=== PATIENT | female | born 1935 | race Caucasian/White ===

== ENCOUNTER 2017-05-02 14:50 | Inpatient (IN) | payer MEDICARE, OTHER ==
[~2017-05-02] VITALS: Ht 162.6 cm; Wt 53.6 kg
[~2017-05-02 14:50] MED LIST: BRIM0.1S3; TRAV0.007
[2017-05-02] MEDS ORDERED: SODIUM CHLORIDE 0.9% 1,000 ML IVB ONE (16:00)
[2017-05-02 16:44] LABS: Lymphocytes # (auto) 1.6 uL; Mean Corpuscular Volume 103.8 fL (80.0-100.0); Neutrophils # (auto) 7.5 uL; Nucleated Red Blood Cells % 0.2 %
[2017-05-02 16:47] LABS: Basophils # (auto) 0 uL; Basophils % (auto) 0.4 % (0.0-2.0); Eosinophils # (auto) 0 uL; Eosinophils % (auto) 0.4 % (0.0-7.0); Hematocrit 43.8 % (36.0-46.0); Hemoglobin 15.1 g/dL (12.2-16.2); Lymphocytes % (auto) 15.2 % (10.0-50.0); Mean Corpuscular Hemoglobin 35.7 pg (28.0-32.0); Mean Corpuscular Hgb Conc. 34.4 g/dL (32.0-36.0); Monocytes # (auto) 1.1 uL; Monocytes % (auto) 11.1 % (0.0-12.0); Neutrophils % (auto) 72.9 % (37.0-80.0); Red Blood Cells 4.22 10^6/uL (4.0-5.20); Red Cell Distribution Width 12.6 % (11.8-14.3); White Blood Cell 10.3 10^3/uL (4.4-10.8)
[2017-05-02 16:50] LABS: Platelet Count (auto) 111 10^3/uL (140-450)
[2017-05-02 16:54] LABS: INR 1.03 (0.9-1.15); Prothrombin Time 11.2 sec (9.37-12.3)
[2017-05-02 17:08] LABS: Alanine Aminotransferase 30 U/L (13-56); Albumin 3.5 g/dL (3.4-5.0); Alkaline Phosphatase 111 U/L (45-117); Anion Gap 7 (5-15); Aspartate Aminotransferase 38 U/L (15-37); BUN/Creatinine Ratio 21.3; Bilirubin, Total 1.1 mg/dL (0.2-1.0); Blood Urea Nitrogen 17 mg/dL (7-18); Calcium 8.5 mg/dL (8.5-10.1); Carbon Dioxide 27 mmol/L (21-32); Chloride 107 mmol/L (98-107); GFR African American 89 mL/min; GFR Non-African American 74 mL/min; Glucose 106 mg/dL (74-106); Magnesium 2.5 mg/dL (1.6-2.6); Potassium 3.8 mmol/L (3.5-5.1); Sodium 141 mmol/L (136-145); Total Protein 6.8 g/dL (6.4-8.2)
[2017-05-02 19:17] LABS: Urine Bacteria NONE SEEN /hpf (None Seen); Urine Blood Negative /uL (Negative); Urine WBC 4 /hpf (0 - 5)
[2017-05-02] MEDS ORDERED: ONDANSETRON HCL 4 MG/2 ML VIAL IV PRN (20:45)
[2017-05-02] MEDS ORDERED: ACETAMINOPHEN 325 MG TAB PO PRN (20:45)
[2017-05-02] MEDS ORDERED: MORPHINE SULFATE 4 MG/ML SYR/VIAL IV PRN (20:45)
[2017-05-02] MEDS ORDERED: DOCUSATE SOD 100 MG CAP PO PRN (20:45)
[2017-05-02] MEDS ORDERED: HYDROcodone-ACET 5/325MG TAB PO PRN (20:45)
[2017-05-02] MEDS ORDERED: NICOTINE 21MG/24 HR TOPICAL PATCH TD ONE (21:45)
[2017-05-02] MEDS: SODIUM CHLORIDE 0.9% 1,000 ML IV SCH (21:50)
[2017-05-02] MEDS: FAMOTIDINE 20 MG TAB PO SCH (22:00)
[2017-05-02 23:27] VITALS: BP 134/73
[2017-05-03 05:00] VITALS: BP 103/55
[2017-05-03 08:56] VITALS: BP 111/56
[2017-05-03] MEDS: FAMOTIDINE 20 MG TAB PO SCH ×2 (10:00→21:59)
[2017-05-03] MEDS: ENOXAPARIN SOD 40 MG/0.4 ML SYRINGE SC SCH (10:00)
[2017-05-03 13:00] VITALS: BP 103/37
[2017-05-03] MEDS: SODIUM CHLORIDE 0.9% 1,000 ML IV SCH (13:21)
[2017-05-03 17:33] VITALS: BP 110/53
[2017-05-03 22:00] VITALS: BP 132/70
[2017-05-04 05:14] VITALS: BP 100/54
[2017-05-04] MEDS: SODIUM CHLORIDE 0.9% 1,000 ML IV SCH (06:51)
[2017-05-04 08:40] VITALS: BP 109/58
[2017-05-04] MEDS: ENOXAPARIN SOD 40 MG/0.4 ML SYRINGE SC SCH (10:00)
[2017-05-04] MEDS: FAMOTIDINE 20 MG TAB PO SCH (10:00)
== END 2017-05-04 13:48 | disposition home or self-care (01) | DRG 605 ==
LOC: ER 14:50 → MERGE 14:51 → OVERFLOW 14:51 → WEST WING 21:44
PROVIDERS: ADMIT Nurse Practitioner; ATTEND Family Medicine
DX: S70.01XA Contusion of right hip, initial encounter (principal); D69.6 Thrombocytopenia, unspecified; W18.39XA Other fall on same level, initial encounter; K80.20 Calculus of gallbladder without cholecystitis without obstruction; M16.0 Bilateral primary osteoarthritis of hip; R62.7 Adult failure to thrive; F17.210 Nicotine dependence, cigarettes, uncomplicated; H40.9 Unspecified glaucoma; M51.36 Other intervertebral disc degeneration, lumbar region; Z86.73 Personal history of transient ischemic attack (TIA), and cerebral infarction without residual deficits; Y93.89 Activity, other specified; Z88.1 Allergy status to other antibiotic agents; Y92.091 Bathroom in other non-institutional residence as the place of occurrence of the external cause; Y99.8 Other external cause status
CPT/HCPCS: 36415; 70450; 71045; 72192; 80053; 81001; 83735; 84484; 85025; 85610; 85730; 93005; 94761; 96360; 96361; 97116; 97163; 97530

== ENCOUNTER 2017-05-07 06:44 | Inpatient (IN) | payer MEDICARE, BC ==
[~2017-05-07] VITALS: Ht 167.6 cm; Wt 57.7 kg
[2017-05-07 07:38] LABS: Basophils # (auto) 0.1 uL; Eosinophils # (auto) 0.1 uL; Lymphocytes # (auto) 1.3 uL; Monocytes # (auto) 1.3 uL; Nucleated Red Blood Cells % 0.1 %
[2017-05-07 07:40] LABS: Basophils % (auto) 0.8 % (0.0-2.0); Eosinophils % (auto) 0.5 % (0.0-7.0); Hematocrit 40.2 % (36.0-46.0); Hemoglobin 13.9 g/dL (12.2-16.2); Lymphocytes % (auto) 11.4 % (10.0-50.0); Mean Corpuscular Hemoglobin 36.1 pg (28.0-32.0); Mean Corpuscular Hgb Conc. 34.6 g/dL (32.0-36.0); Mean Corpuscular Volume 104.4 fL (80.0-100.0); Monocytes % (auto) 11.2 % (0.0-12.0); Neutrophils # (auto) 8.9 uL; Neutrophils % (auto) 76.1 % (37.0-80.0); Platelet Count (auto) 137 10^3/uL (140-450); Red Blood Cells 3.85 10^6/uL (4.0-5.20); Red Cell Distribution Width 12.6 % (11.8-14.3); White Blood Cell 11.7 10^3/uL (4.4-10.8)
[2017-05-07 07:54] LABS: Alanine Aminotransferase 51 U/L (13-56); Albumin 3.1 g/dL (3.4-5.0); Alkaline Phosphatase 138 U/L (45-117); Anion Gap 8 (5-15); Aspartate Aminotransferase 33 U/L (15-37); Bilirubin, Total 0.9 mg/dL (0.2-1.0); Blood Urea Nitrogen 15 mg/dL (7-18); Calcium 8.5 mg/dL (8.5-10.1); Carbon Dioxide 27 mmol/L (21-32); Chloride 112 mmol/L (98-107); GFR African American 153 mL/min; GFR Non-African American 126 mL/min; Glucose 106 mg/dL (74-106); Potassium 3.8 mmol/L (3.5-5.1); Sodium 147 mmol/L (136-145); Total Protein 6.9 g/dL (6.4-8.2)
[2017-05-07 08:48] LABS: INR 0.95 (0.9-1.15); Partial Thromboplastin Time 29.4 sec (22.64-33.71); Prothrombin Time 10.4 sec (9.37-12.3)
[2017-05-07] MEDS ORDERED: MORPHINE SULFATE 4 MG/ML SYR/VIAL IV PRN ×3 (09:00)
[2017-05-07] MEDS ORDERED: PROMETHAZINE HCL 25 MG/ML 1ML IV PRN (09:00)
[2017-05-07] MEDS ORDERED: OSELTAMIVIR 75 MG CAP PO ONE (09:00)
[2017-05-07] MEDS ORDERED: LACTULOSE 20Gm/30ML SOLN PO PRN (09:00)
[2017-05-07] MEDS ORDERED: ALBUTEROL SULF 2.5 MG/0.5ML(0.5%) NEB SOLN NEB PRN (09:00)
[2017-05-07] MEDS ORDERED: NITROGLYCERIN 0.4 MG SL TAB SL PRN (09:00)
[2017-05-07] MEDS ORDERED: TEMAZEPAM 15 MG CAP PO PRN (09:00)
[2017-05-07] MEDS ORDERED: IOHEXOL 350 MG/ML 100ML IJ ONE (09:18)
[2017-05-07] MEDS: SODIUM CHLORIDE 0.9% 1,000 ML IV SCH (09:22)
[2017-05-07] MEDS ORDERED: OSELTAMIVIR 30 MG CAP PO ONE (09:30)
[2017-05-07] MEDS: DOXYCYCLINE HYC 100MG/250ML 250 ML IV SCH ×2 (09:40→20:51)
[2017-05-07] MEDS ORDERED: OSELTAMIVIR 75 MG CAP PO SCH (10:00)
[2017-05-07] MEDS: ENOXAPARIN SOD 40 MG/0.4 ML SYRINGE SC SCH (10:06)
[2017-05-07] MEDS: ASPirin 81 mg TAB PO SCH (10:06)
[2017-05-07] MEDS: METOPROLOL TARTRATE 25 MG TAB PO SCH ×2 (10:07→22:10)
[2017-05-07] MEDS: IPRATROPIUM BROM 0.5 MG/2.5ML INH SOL NEB SCH ×2 (11:47→18:36)
[2017-05-07] MEDS: ALBUTEROL SULF 2.5 MG/0.5ML(0.5%) NEB SOLN NEB SCH ×2 (11:47→18:36)
[2017-05-07 14:56] VITALS: BP 116/68
[2017-05-07] MEDS ORDERED: cefTRIAXone 1GM/10ml IVPUSH 10 ML IV ONE (16:15)
[2017-05-07 17:55] VITALS: BP 112/61
[2017-05-07 18:00] VITALS: BP 112/61
[2017-05-07 20:00] VITALS: BP 111/55
[2017-05-07] MEDS: LORazepam 0.5 MG TAB PO PRN (20:59)
[2017-05-07 22:00] VITALS: BP 111/55
[2017-05-07] MEDS ORDERED: OSELTAMIVIR 30 MG CAP PO SCH (22:00)
[2017-05-08] MEDS: IPRATROPIUM BROM 0.5 MG/2.5ML INH SOL NEB SCH ×4 (00:15→18:59)
[2017-05-08] MEDS: ALBUTEROL SULF 2.5 MG/0.5ML(0.5%) NEB SOLN NEB SCH ×4 (00:15→19:00)
[2017-05-08 05:00] VITALS: BP 106/55
[2017-05-08] MEDS: SODIUM CHLORIDE 0.9% 1,000 ML IV SCH (05:35)
[2017-05-08 07:04] LABS: Basophils # (auto) 0 uL; Basophils % (auto) 0.5 % (0.0-2.0); Eosinophils # (auto) 0.2 uL; Hemoglobin 11.8 g/dL (12.2-16.2); Lymphocytes # (auto) 1.8 uL; Monocytes # (auto) 0.8 uL; Neutrophils # (auto) 4.6 uL; Nucleated Red Blood Cells % 0.1 %
[2017-05-08 07:06] LABS: Eosinophils % (auto) 2.5 % (0.0-7.0); Hematocrit 34.8 % (36.0-46.0); Lymphocytes % (auto) 23.7 % (10.0-50.0); Mean Corpuscular Hemoglobin 35.7 pg (28.0-32.0); Mean Corpuscular Volume 105.1 fL (80.0-100.0); Monocytes % (auto) 11.2 % (0.0-12.0); Neutrophils % (auto) 62.1 % (37.0-80.0); Platelet Count (auto) 117 10^3/uL (140-450); Red Blood Cells 3.31 10^6/uL (4.0-5.20); Red Cell Distribution Width 12.6 % (11.8-14.3); White Blood Cell 7.4 10^3/uL (4.4-10.8)
[2017-05-08 07:42] LABS: Albumin 2.4 g/dL (3.4-5.0); Bilirubin, Total 0.7 mg/dL (0.2-1.0); Calcium 7.8 mg/dL (8.5-10.1); Potassium 3.7 mmol/L (3.5-5.1); Total Protein 5.5 g/dL (6.4-8.2)
[2017-05-08 08:00] VITALS: BP 116/58
[2017-05-08 09:00] VITALS: BP 116/58
[2017-05-08] MEDS ORDERED: cefTRIAXone 1GM/10ml IVPUSH 10 ML IV SCH (09:00)
[2017-05-08] MEDS: ASPirin 81 mg TAB PO SCH (09:35)
[2017-05-08] MEDS: DOXYCYCLINE HYC 100MG/250ML 250 ML IV SCH ×2 (09:35→21:01)
[2017-05-08] MEDS: ENOXAPARIN SOD 40 MG/0.4 ML SYRINGE SC SCH (09:42)
[2017-05-08] MEDS: METOPROLOL TARTRATE 25 MG TAB PO SCH ×2 (10:00→22:00)
[2017-05-08 13:00] VITALS: BP 140/65
[2017-05-08 17:00] VITALS: BP 113/60
[2017-05-08] MEDS: traMADol HCL 50 MG TAB PO PRN (19:05)
[2017-05-08 22:00] VITALS: BP 112/60
[2017-05-09] VITALS (7 sets, daily range): BP systolic 103–136; BP diastolic 59–86
[2017-05-09] MEDS: ALBUTEROL SULF 2.5 MG/0.5ML(0.5%) NEB SOLN NEB SCH ×4 (00:31→19:18)
[2017-05-09] MEDS: IPRATROPIUM BROM 0.5 MG/2.5ML INH SOL NEB SCH ×4 (00:31→19:18)
[2017-05-09] MEDS: traMADol HCL 50 MG TAB PO PRN ×3 (04:47→18:01)
[2017-05-09] MEDS: DOXYCYCLINE HYC 100MG/250ML 250 ML IV SCH (09:00)
[2017-05-09] MEDS: ENOXAPARIN SOD 40 MG/0.4 ML SYRINGE SC SCH (09:34)
[2017-05-09] MEDS: ASPirin 81 mg TAB PO SCH (09:34)
[2017-05-09] MEDS: METOPROLOL TARTRATE 25 MG TAB PO SCH ×2 (09:37→22:00)
[2017-05-09] MEDS: SODIUM CHLORIDE 0.9% 1,000 ML IV SCH (13:45)
[2017-05-10] VITALS (7 sets, daily range): BP systolic 104–128; BP diastolic 54–76
[2017-05-10] MEDS: ALBUTEROL SULF 2.5 MG/0.5ML(0.5%) NEB SOLN NEB SCH ×4 (00:24→18:52)
[2017-05-10] MEDS: IPRATROPIUM BROM 0.5 MG/2.5ML INH SOL NEB SCH ×4 (00:24→18:52)
[2017-05-10] MEDS: SODIUM CHLORIDE 0.9% 1,000 ML IV SCH ×3 (00:56→20:08)
[2017-05-10] MEDS: traMADol HCL 50 MG TAB PO PRN ×2 (05:10→14:51)
[2017-05-10 06:58] LABS: Basophils # (auto) 0.1 uL; Basophils % (auto) 0.8 % (0.0-2.0); Eosinophils # (auto) 0.3 uL; Eosinophils % (auto) 3.5 % (0.0-7.0); Hematocrit 36.8 % (36.0-46.0); Hemoglobin 12.5 g/dL (12.2-16.2); Lymphocytes # (auto) 1.2 uL; Lymphocytes % (auto) 16.5 % (10.0-50.0); Mean Corpuscular Hemoglobin 35.6 pg (28.0-32.0); Mean Corpuscular Volume 104.9 fL (80.0-100.0); Monocytes # (auto) 0.8 uL; Monocytes % (auto) 11.5 % (0.0-12.0); Neutrophils # (auto) 4.9 uL; Neutrophils % (auto) 67.7 % (37.0-80.0); Nucleated Red Blood Cells % 0.1 %; Platelet Count (auto) 168 10^3/uL (140-450); Red Blood Cells 3.51 10^6/uL (4.0-5.20); Red Cell Distribution Width 12.4 % (11.8-14.3); White Blood Cell 7.2 10^3/uL (4.4-10.8)
[2017-05-10 07:18] LABS: Albumin 2.4 g/dL (3.4-5.0); BUN/Creatinine Ratio 17.9; Bilirubin, Total 0.5 mg/dL (0.2-1.0); Calcium 7.9 mg/dL (8.5-10.1); Potassium 3.8 mmol/L (3.5-5.1); Total Protein 5.7 g/dL (6.4-8.2)
[2017-05-10] MEDS: METOPROLOL TARTRATE 25 MG TAB PO SCH ×2 (10:00→21:38)
[2017-05-10] MEDS: ENOXAPARIN SOD 40 MG/0.4 ML SYRINGE SC SCH (10:11)
[2017-05-10] MEDS: ASPirin 81 mg TAB PO SCH (10:12)
[2017-05-10] MEDS: BOOST 8 ounces PO SCH (18:04)
[2017-05-11] MEDS: IPRATROPIUM BROM 0.5 MG/2.5ML INH SOL NEB SCH ×4 (00:27→19:25)
[2017-05-11] MEDS: ALBUTEROL SULF 2.5 MG/0.5ML(0.5%) NEB SOLN NEB SCH ×4 (00:27→19:25)
[2017-05-11] MEDS: SODIUM CHLORIDE 0.9% 1,000 ML IV SCH ×2 (05:25→12:52)
[2017-05-11 05:57] VITALS: BP 111/60
[2017-05-11 08:00] VITALS: BP 115/58
[2017-05-11] MEDS: BOOST 8 ounces PO SCH ×2 (08:14→17:44)
[2017-05-11] MEDS: traMADol HCL 50 MG TAB PO PRN (08:14)
[2017-05-11 08:44] VITALS: BP 115/58
[2017-05-11] MEDS: ASPirin 81 mg TAB PO SCH (09:15)
[2017-05-11] MEDS: METOPROLOL TARTRATE 25 MG TAB PO SCH ×3 (09:16→22:12)
[2017-05-11] MEDS: ENOXAPARIN SOD 40 MG/0.4 ML SYRINGE SC SCH (09:16)
[2017-05-11] MEDS ORDERED: PANTOPRAZOLE 40 MG TAB PO ONE (12:15)
[2017-05-11] MEDS ORDERED: MORPHINE SULF 15mg ER tab PO ONE (12:15)
[2017-05-11] MEDS ORDERED: cefTRIAXone 1GM/10ml IVPUSH 10 ML IV ONE (12:15)
[2017-05-11] MEDS ORDERED: AZITHROMYCIN 250 MG TAB PO ONE (12:45)
[2017-05-11 13:00] VITALS: BP 118/58
[2017-05-11] MEDS: MORPHINE SULFATE 4 MG/ML SYR/VIAL IV PRN (16:33)
[2017-05-11 17:00] VITALS: BP 111/72
[2017-05-11] MEDS ORDERED: SENNA 8.6 MG TAB PO ONE (17:00)
[2017-05-11] MEDS ORDERED: DOCUSATE SOD 100 MG CAP PO PRN (17:00)
[2017-05-11 22:00] VITALS: BP 119/65
[2017-05-11] MEDS: MORPHINE SULF 15mg ER tab PO SCH (22:12)
[2017-05-12] MEDS: IPRATROPIUM BROM 0.5 MG/2.5ML INH SOL NEB SCH ×4 (00:16→19:55)
[2017-05-12] MEDS: ALBUTEROL SULF 2.5 MG/0.5ML(0.5%) NEB SOLN NEB SCH ×4 (00:16→19:55)
[2017-05-12 05:00] VITALS: BP 101/57
[2017-05-12 08:00] VITALS: BP 139/64
[2017-05-12] MEDS: SODIUM CHLORIDE 0.9% 1,000 ML IV SCH (08:28)
[2017-05-12] MEDS: BOOST 8 ounces PO SCH ×2 (08:28→19:00)
[2017-05-12 09:00] VITALS: BP 139/64
[2017-05-12] MEDS: ASPirin 81 mg TAB PO SCH (09:36)
[2017-05-12] MEDS: MORPHINE SULF 15mg ER tab PO SCH ×2 (09:37→22:00)
[2017-05-12] MEDS: cefTRIAXone 1GM/10ml IVPUSH 10 ML IV SCH (09:40)
[2017-05-12] MEDS: PANTOPRAZOLE 40 MG TAB PO SCH (09:41)
[2017-05-12] MEDS: AZITHROMYCIN 250 MG TAB PO SCH (09:41)
[2017-05-12] MEDS: METOPROLOL TARTRATE 25 MG TAB PO SCH (09:41)
[2017-05-12] MEDS ORDERED: CYANOCOBALAMIN 500 MCG TAB PO ONE (12:00)
[2017-05-12 12:32] VITALS: BP 96/51
[2017-05-12 16:39] VITALS: BP 106/58
[2017-05-12] MEDS: MORPHINE SULFATE 4 MG/ML SYR/VIAL IV PRN (19:00)
[2017-05-12 22:00] VITALS: BP 92/51
[2017-05-13] VITALS (8 sets, daily range): BP systolic 93–119; BP diastolic 45–82
[2017-05-13] MEDS: IPRATROPIUM BROM 0.5 MG/2.5ML INH SOL NEB SCH ×4 (00:58→18:26)
[2017-05-13] MEDS: ALBUTEROL SULF 2.5 MG/0.5ML(0.5%) NEB SOLN NEB SCH ×4 (00:58→18:26)
[2017-05-13] MEDS: LORazepam 0.5 MG TAB PO PRN ×2 (02:58→16:29)
[2017-05-13] MEDS: SODIUM CHLORIDE 0.9% 1,000 ML IV SCH (05:00)
[2017-05-13] MEDS: BOOST 8 ounces PO SCH ×2 (08:00→18:00)
[2017-05-13] MEDS: cefTRIAXone 1GM/10ml IVPUSH 10 ML IV SCH (09:09)
[2017-05-13] MEDS: PANTOPRAZOLE 40 MG TAB PO SCH (09:13)
[2017-05-13] MEDS: ASPirin 81 mg TAB PO SCH (09:13)
[2017-05-13] MEDS: MORPHINE SULF 15mg ER tab PO SCH ×2 (09:14→20:29)
[2017-05-13] MEDS: CYANOCOBALAMIN 500 MCG TAB PO SCH (09:15)
[2017-05-13] MEDS: AZITHROMYCIN 250 MG TAB PO SCH (09:16)
[2017-05-13] MEDS ORDERED: MAGNESIUM CITRATE SOLUTION 300 ML BTL PO ONE (14:00)
[2017-05-13] MEDS ORDERED: LACTULOSE 20Gm/30ML SOLN PO ONE (14:00)
[2017-05-13] MEDS ORDERED: BISACODYL 10 MG RECT SUPP PR ONE (15:15)
[2017-05-14] MEDS: IPRATROPIUM BROM 0.5 MG/2.5ML INH SOL NEB SCH ×2 (00:26→07:35)
[2017-05-14] MEDS: ALBUTEROL SULF 2.5 MG/0.5ML(0.5%) NEB SOLN NEB SCH ×2 (00:26→07:35)
[2017-05-14 05:00] VITALS: BP 115/80
[2017-05-14] MEDS: BOOST 8 ounces PO SCH (07:47)
[2017-05-14 08:00] VITALS: BP 117/68
[2017-05-14 09:00] VITALS: BP 117/68
[2017-05-14] MEDS: ASPirin 81 mg TAB PO SCH (09:14)
[2017-05-14] MEDS: cefTRIAXone 1GM/10ml IVPUSH 10 ML IV SCH (09:14)
[2017-05-14] MEDS: PANTOPRAZOLE 40 MG TAB PO SCH (09:14)
[2017-05-14] MEDS: AZITHROMYCIN 250 MG TAB PO SCH (09:14)
[2017-05-14] MEDS: MORPHINE SULF 15mg ER tab PO SCH (09:14)
[2017-05-14] MEDS: CYANOCOBALAMIN 500 MCG TAB PO SCH (09:21)
[2017-05-14 10:20] VITALS: BP 119/65
== END 2017-05-14 13:20 | DRG 193 ==
LOC: ER 06:44 → EDBD 06:44 → TELE 06:45 → TELE-WESTW 16:29 → WEST WING 05-13 15:06
PROVIDERS: ADMIT Internal Medicine; ATTEND Internal Medicine
DX: J18.9 Pneumonia, unspecified organism (principal); J96.00 Acute respiratory failure, unspecified whether with hypoxia or hypercapnia; E44.0 Moderate protein-calorie malnutrition; T17.590A Other foreign object in bronchus causing asphyxiation, initial encounter; J44.0 Chronic obstructive pulmonary disease with (acute) lower respiratory infection; D69.6 Thrombocytopenia, unspecified; E86.0 Dehydration; W01.0XXA Fall on same level from slipping, tripping and stumbling without subsequent striking against object, initial encounter; F17.210 Nicotine dependence, cigarettes, uncomplicated; K59.00 Constipation, unspecified; F41.9 Anxiety disorder, unspecified; G47.00 Insomnia, unspecified; M19.90 Unspecified osteoarthritis, unspecified site; X58.XXXA Exposure to other specified factors, initial encounter; M25.551 Pain in right hip; H40.9 Unspecified glaucoma; K80.20 Calculus of gallbladder without cholecystitis without obstruction; Z82.49 Family history of ischemic heart disease and other diseases of the circulatory system; Z88.8 Allergy status to other drugs, medicaments and biological substances; Z79.899 Other long term (current) drug therapy; Z68.20 Body mass index [BMI] 20.0-20.9, adult; Z90.89 Acquired absence of other organs; Y93.89 Activity, other specified; Y92.89 Other specified places as the place of occurrence of the external cause; Y99.8 Other external cause status
CPT/HCPCS: 36415; 36600; 70450; 71045; 71275; 80053; 80061; 82550; 82607; 82805; 83605; 83735; 83880; 84443; 84484; 85025; 85379; 85610; 85730; 86141; 87040; 87081; 87804; 93005; 93306; 94640; 94761; 96361; 96372; 96374; 97116; 97530; G9035; J3490